=== PATIENT | female | born 1975 | race African-American/Black ===

== ENCOUNTER 2016-11-21 14:40 | Emergency (ER) | payer OTHER ==
[2016-11-21 14:49] VITALS: TEMP 98.6; BMI 32.8
[2016-11-21] MEDS ORDERED: LABETALOL 20 MG/4 ML SYRINGE IV ONE (15:08)
--- NOTE | 2016-11-21 15:30 | DIRPT ---
CLINICAL DATA: Hypertension and left arm pain EXAM: PORTABLE CHEST 1 VIEW COMPARISON: 05/25/2015 FINDINGS: The heart size and mediastinal contours are within normal limits. Both lungs are clear. The visualized skeletal structures are unremarkable. IMPRESSION: No active disease. Electronically Signed By: Shashi Snider M.D. On: 11/21/2016 15:27
[2016-11-21 15:39] LABS: MPV 9.4 fL (7.4-10.4)
[2016-11-21 15:48] LABS: PARTIAL THROMB. TIME 25.4 SEC (22-35)
[2016-11-21 15:48] LABS: LEUKOCYTES/URINE NEG (NEGATIVE); NITRITE/URINE NEG (NEGATIVE); URINE OCCULT BLOOD 3+ (NEG/TRACE); WBC/URINE 0-2 (0-5)
[2016-11-21 15:50] LABS: ALL NEG? YES; MDMA* NEG (NEGATIVE); METHAMPHETAMINES NEG (NEGATIVE); OXYCODONE NEG (NEGATIVE)
[2016-11-21] MEDS ORDERED: hydrALAZINE 20 MG/ML VIAL IV ONE (15:57)
[2016-11-21 15:59] LABS: BLOOD UREA NITROGEN 13 MG/DL (7-17); CALCIUM 9.3 MG/DL (8.4-10.2); CALCULATED OSMOLALITY 264 MOs/Kg (270-290); CHLORIDE 104 mEq/L (98-107); GLUCOSE 132 mg/dL (70-99); SODIUM LEVEL 136 mEq/L (137-146); TOTAL PROTEIN 7.7 G/DL (6.3-8.2)
--- NOTE | 2016-11-21 15:59 | EDPRACDOC ---
- General Information Chief Complaint: Upper Extremity Injury Stated Complaint: HIGH BP Time Seen by Provider: 11/21/16 15:06 Information Source: Patient Mode Of Arrival: Car Home Medications: Home Medications Lisinopril/Hydrochlorothiazide [Lisinopril-Hctz 20-25 mg Tab] 1 tab PO DAILY 12/06 Metoprolol Succinate (XL) [Toprol Xl] 50 mg PO DAILY #30 tab 11/21/16 Allergies/Adverse Reactions: Allergies Allergy/AdvReac Type Severity Reaction Status Date / Time No Known Allergies Allergy Verified 11/21/16 14:44 - History of Present Illness Onset: 1100 HPI: PT SAID THAT HER BP WAS REALLY HIGH TODAY. THE PT SAID THAT SHE TOOK HER LISINOPRIL, BUT IT DID NOT GO DOWN. THE PT SAID THAT SHE DOES NOT TAKE HER LISINOPRIL REGULARLY. Symptoms: Reports: Mild Circumstances: Reports: Spontaneous Onset Relevent History of: Reports: Hypertension Hypertension Treatment: Reports: Noncompliant Recent Use of: Reports: None Associated Signs and Symptoms: Reports: Other (LEFT ARM NUMBNESS) ED Past Medical History - Patient Medical History Cardiac History: Reports: Hypertension Psychological History: Denies: Depression Surgical History: Reports: Other (CSXN) - Social Medical History Smoking Status: Never smoker ETOH: None Substance Abuse: None Lives In: Home EDM Review of Systems - Review of Systems ROS Negative Except as Marked: Yes All systems reviewed and were negative except as marked Cardiovascular: Other (HTN) - Physical Exam Constitutional: Alert (Awake), No apparent distress Oriented to: Time, Person, Place Last recorded Vital Signs: Last Vital Signs Temp 98.6 F 11/21/16 14:45 Pulse 100 11/21/16 14:59 Resp 20 11/21/16 14:59 BP 187/104 H 11/21/16 14:59 Pulse Ox 98 11/21/16 14:59 Oxygen Pulse Oxygen Saturation 98 O2 Device Room Air Oxygen Flow Rate Fraction of Inspired Oxygen ( FIO2) - HEENT Head: Normal ( normocephalic) Eye Exam: Normal (PERRL, EOMI, Sclera white) Oropharynx: Normal (Pharynx:Moist without exudate,Gums-no swelling) ENT EAC: Normal TMJ: Normal Nose: No Symptoms Reported (septum midline) Neck: Normal (FROM, trachea at midline) - Respiratory/Cardiovascular Respiratory: Normal - CTA Cardiovascular: Tachycardia - GI Auscultation: Normal (NABS) Palpation: Normal (Soft,No rebound or guarding, non distended) Tenderness: Non tender Rowley's Sign: Negative - Musculoskeletal Back: Normal (Non-Tender) Extremities: Normal (Normal tone, Pulses 2+ No cyanosis or edema, FROM) - Integumentary Skin: Normal, Warm, Dry Lymphatics: Normal (no adenopathy) - Neurologic Memory Impaired: Normal Motor Function: Normal (Normal tone, Pulses 2+ No cyanosis or edema, FROM) Cranial Nerve: Normal (CN II-X11 intact sensation, strength 5/5) Cerebellar: Normal Mood Description: Normal Thought: Coherent Perception: Normal - Re-evaluation Re-evaluation 1 Re-evaluation Time: 17:40 (IMPROVED) - Results 11/21/16 15:28 11/21/16 15:28 WBC 8.2 xk/uL (3.8-10.8) 11/21/16 15: RBC 5.32 xM/uL (4.20-5.40) 11/21/16 15:28 Hgb 12.7 g/dL (12.0-16.0) 11/21/16 15:28 Hct 39.7 % (36-47) 11/21/16 15:28 MCV 75 fL (81-99) L 11/21/16 15:28 MCH 23.9 pg (27-32) L 11/21/16 15:28 MCHC 32.1 g/dl (33-36) L 11/21/16 15:28 RDW 14.9 % (11.5-14.5) H 11/21/16 15:28 Plt Count 228 xk/uL (130-400) 11/21/16 15:28 MPV 9.4 fL (7.4-10.4) 11/21/16 15:28 PT 10.7 SEC (9.2-11.2) 11/21/16 15:28 INR 1.0 11/21/16 15:28 APTT 25.4 SEC (22-35) 11/21/16 15:28 Urine Color Yellow 11/21/16 15:36 Urine Clarity Clear 11/21/16 15:36 Urine pH 5.0 (5.0-8.0) 11/21/16 15:36 Ur Specific [place] 1.020 (1.003-1.035) 11/21/16 15:36 Urine Protein Neg (NEG/TRACE) 11/21/16 15:36 Urine Glucose (UA) Neg (NEGATIVE) 11/21/16 15:36 Urine Ketones Neg (NEGATIVE) 11/21/16 15:36 Urine Occult Blood 3+ (NEG/TRACE) H 11/21/16 15:36 Urine Nitrite Neg (NEGATIVE) 11/21/16 15:36 Urine Bilirubin Neg (NEGATIVE) 11/21/16 15:36 Urine Urobilinogen <2.0 MG/DL (0-1) 11/21/16 15:36 Ur Leukocyte Esterase Neg (NEGATIVE) 11/21/16 15:36 Urine RBC 10-20 (0-5) H 11/21/16 15:36 Urine WBC 0-2 (0-5) 11/21/16 15:36 Ur Epithelial Cells 2+ 11/21/16 15:36 Urine Bacteria Few (NEG/FEW) 11/21/16 15:36 Urine Mucus Occ (NEG/OCC) 11/21/16 15:36 Urine Test Neg (NEGATIVE) 11/21/16 15:36 Urine Opiates Screen Neg (NEGATIVE) 11/21/16 15:36 Ur Oxycodone Screen Neg (NEGATIVE) 11/21/16 15:36 Urine Methadone Screen Neg (NEGATIVE) 11/21/16 15:36 Ur Barbiturates Screen Neg (NEGATIVE) 11/21/16 15:36 Ur Tricyclics Screen Neg (NEGATIVE) 11/21/16 15:36 Ur Phencyclidine Scrn Neg (NEGATIVE) 11/21/16 15:36 Ur Amphetamines Screen Neg (NEGATIVE) 11/21/16 15:36 U Methamphetamines Scrn Neg (NEGATIVE) 11/21/16 15:36 Urine MDMA Screen Neg (NEGATIVE) 11/21/16 15:36 U Benzodiazepines Scrn Neg (NEGATIVE) 11/21/16 15:36 Urine Cocaine Screen Neg (NEGATIVE) 11/21/16 15:36 Ur THC Screen Neg (NEGATIVE) 11/21/16 15:36 Lab Results 11/21/16 11/21/16 11/21/16 15:36 15:36 15:36 WBC RBC Hgb Hct MCV MCH MCHC RDW Plt Count MPV PT INR APTT Urine Color Yellow Urine Clarity Clear Urine pH 5.0 Ur Specific [place] 1.020 Urine Protein Neg Urine Glucose (UA) Neg Urine Ketones Neg Urine Occult Blood 3+ H Urine Nitrite Neg Urine Bilirubin Neg Urine Urobilinogen <2.0 Ur Leukocyte Esterase Neg Urine RBC 10-20 H Urine WBC 0-2 Ur Epithelial Cells 2+ Urine Bacteria Few Urine Mucus Occ Urine Test Neg Urine Opiates Screen Neg Ur Oxycodone Screen Neg Urine Methadone Screen Neg Ur Barbiturates Screen Neg Ur Tricyclics Screen Neg Ur Phencyclidine Scrn Neg Ur Amphetamines Screen Neg U Methamphetamines Scrn Neg Urine MDMA Screen Neg U Benzodiazepines Scrn Neg Urine Cocaine Screen Neg Ur THC Screen Neg 11/21/16 11/21/16 15:28 15:28 WBC 8.2 RBC 5.32 Hgb 12.7 Hct 39.7 MCV 75 L MCH 23.9 L MCHC 32.1 L RDW 14.9 H Plt Count 228 MPV 9.4 PT 10.7 INR 1.0 APTT 25.4 Urine Color Urine Clarity Urine pH Ur Specific [place] Urine Protein Urine Glucose (UA) Urine Ketones Urine Occult Blood Urine Nitrite Urine Bilirubin Urine Urobilinogen Ur Leukocyte Esterase Urine RBC Urine WBC Ur Epithelial Cells Urine Bacteria Urine Mucus Urine Test Urine Opiates Screen Ur Oxycodone Screen Urine Methadone Screen Ur Barbiturates Screen Ur Tricyclics Screen Ur Phencyclidine Scrn Ur Amphetamines Screen U Methamphetamines Scrn Urine MDMA Screen U Benzodiazepines Scrn Urine Cocaine Screen Ur THC Screen - EKG EKG #1 EKG Time: 15:28 -: Yes EKG interpreted by me Rate: bpm: 1528 [place]: Normal Rhythm: NSR Block: None Hypertrophy: None ST: Normal Comparison: 05/25/15 - Diagnostic Imaging Chest Image interpreted by: Radiologist No active disease. Decision Time to Discharge: 17:40 - Departure Yes I personally saw and evaluated the patient. Disposition: Home Condition: Fair Final Diagnosis: Malignant hypertension Instructions: Chronic Hypertension (ED) Education/Counseling Given To: Patient Education/Counseling Given Regarding: Diagnosis, Treatment, Follow Up Referrals: None,No Provider [Primary Care Provider] - One Week Khris Pro II, MD [Staff Physician] - One Week Prescriptions: New Metoprolol Succinate (XL) [Toprol Xl] 50 mg PO DAILY #30 tab No Action Lisinopril/Hydrochlorothiazide [Lisinopril-Hctz 20-25 mg Tab] 1 tab PO DAILY Additional Instructions: TAKE BP MEDS DAILY AT THE SAME TIME.
[2016-11-21 16:11] LABS: SEG NEUTROPHIL 57 % (45-76); TOTAL CELL COUNT 100
[2016-11-21 16:13] LABS: FREE T3 3.71 pg/mL (2.77-5.27); FREE T4 1.06 ng/dL (0.78-2.19)
[2016-11-21 16:26] LABS: hTSH 1.54 uIU/mL (0.5-4.67)
[2016-11-21] MEDS: NITROGLYCERINE 0.4 MG TAB SL SCH ×2 (16:48→17:23)
[2016-11-21] MEDS ORDERED: NS 1,000 ML IV ONE (16:57)
[2016-11-21 18:03] VITALS: BP 113/64; PULSE 75
== END 2016-11-21 18:04 | disposition home or self-care (01) ==
LOC: ED 14:40
DX: I10 Essential (primary) hypertension (principal)
CPT/HCPCS: 36415; 71010; 80053; 80307; 81001; 81025; 84439; 84443; 84481; 84484; 85007; 85027; 85610; 85730; 93005; 96361; 96374; 96375; 99283; J0360; J3490